=== PATIENT | female | born 1945 | race Caucasian/White ===

== ENCOUNTER 2022-08-06 05:46 | Day surgery (SDC) | payer MEDICARE ==
[2022-08-05 14:02] VITALS: BMI 21.2
[2022-08-06 06:44] LABS: #Basophils 0.1 thou/uL (0.0-0.2); #Eosinphils 0.6 thou/uL (0.0-0.7); #Lymphocytes 1.7 thou/uL (1.20-3.40); #Monocytes 0.5 thou/uL (0.11-0.59); #Neutrophils 5.5 thou/uL (1.40-6.50); %Basophils 0.7 % (0.0-1.0); %Eosinophils 6.7 % (0.0-10.0); %Lymphocytes 20.8 % (21.0-51.0); %Monocytes 5.6 % (0.0-10.0); %Neutrophils 66.2 % (42.0-75.0); Hemoglobin 13.9 g/dL (12.0-16.0); Mean Corpuscular HGB CONC 32.8 g/dL (32.0-36.0); Mean Corpuscular Hemoglobin 30.7 pg (27.0-31.0); Mean Corpuscular Volume 93.6 fl (78.0-98.0); Mean Platelet Volume 7.3 fL (7.4-10.4); Platelet Count 341 10x3/uL (130-400); RBC Distribution Width 12.3 % (11.5-14.5); Red Blood Cell (RBC) Count 4.53 mill/uL (4.20-5.40); White Blood Cell (WBC) Count 8.4 10x3/uL (4.8-10.8)
[2022-08-06 07:00] LABS: INR-International Normal Ratio 0.9
[2022-08-06 07:01] LABS: Anion Gap 12 mmol/L (10-20); BUN (Urea Nitrogen) 15 mg/dL (9.8-20.1); Calc. Creatinine Clearance 59 mL/min (70-130); Calcium 9.6 mg/dL (7.8-10.44); Carbon Dioxide 30 mmol/L (23-31); Chloride 100 mmol/L (98-107); Estimated GFR 86; Glucose 120 mg/dL (83-110); Sodium 138 mmol/L (136-145)
[2022-08-06] MEDS ORDERED: Heparin 10,000 UNITS/ 10 ML VIAL ONE (07:02)
[2022-08-06] MEDS ORDERED: Heparin 25,000 units/D5W 0 ML ONE (07:02)
[2022-08-06] MEDS ORDERED: Protamine Sulfate 50 MG/5 ML VIAL ONE (07:02)
[2022-08-06] MEDS ORDERED: Lidocaine 1% (PF) 30 ML VIAL ONE ×2 (07:02→10:03)
[2022-08-06] MEDS ORDERED: Isoproterenol 0.2 MG/1 ML AMP ONE (07:30)
[2022-08-06] MEDS ORDERED: PROPOFOL 200 MG/20 ML VIAL ONE (08:39)
[2022-08-06] MEDS ORDERED: FENTANYL 50 MCG/ML 1 ML VIAL ONE (08:44)
[2022-08-06] MEDS ORDERED: EPINEPHrine 1 MG/ML AMP ONE (10:03)
== END 2022-08-06 12:55 | disposition home or self-care (01) ==
LOC: SDC 05:46
PROVIDERS: ATTEND Internal Medicine Cardiovascular Disease
PROC: 4A023FZ Measurement of Cardiac Rhythm, Percutaneous Approach (ICD-10-PCS; principal; 2022-08-06)
PROC: 4A0234Z Measurement of Cardiac Electrical Activity, Percutaneous Approach (ICD-10-PCS; 2022-08-06)
PROC: 02K83ZZ Map Conduction Mechanism, Percutaneous Approach (ICD-10-PCS; 2022-08-06)
PROC: 0JH632Z Insertion of Monitoring Device into Chest Subcutaneous Tissue and Fascia, Percutaneous Approach (ICD-10-PCS; 2022-08-06)
DX: I45.2 Bifascicular block (principal); I47.1 Supraventricular tachycardia; R55 Syncope and collapse; I10 Essential (primary) hypertension; E03.9 Hypothyroidism, unspecified; E11.9 Type 2 diabetes mellitus without complications; E78.5 Hyperlipidemia, unspecified; J45.909 Unspecified asthma, uncomplicated; Z85.3 Personal history of malignant neoplasm of breast; Z79.890 Hormone replacement therapy; Z79.899 Other long term (current) drug therapy; Z88.8 Allergy status to other drugs, medicaments and biological substances
CPT/HCPCS: 33285; 80048; 85025; 85610; 93620; C1730; C1760; C1764; C1894; J3010; 36415; J0171; J1644; J2001; J2704; J2720